=== PATIENT | male | born 1955 | race Caucasian/White ===

== ENCOUNTER 2019-04-30 10:45 | Inpatient (IN) ==
[2019-04-30] MEDS ORDERED: Albuterol 2.5 MG/3 ML NEBULIZER IH ONE (11:00)
[2019-04-30] MEDS ORDERED: CeFAZolin Syr 2,000MG/20 ML 2,000 MG/20 ML SYRINGE IVPB ONE (11:00)
[2019-04-30] MEDS ORDERED: Ringers Solution, Lactated 1,000 ML IVC SCH ×2 (11:00→18:01)
--- NOTE | 2019-04-30 11:21 | History & Physical Report ---
Date of Encounter: 04/30/19 Time of Encounter: 11:21 24 Hour HP Update - Instructions Instructions: If the History and Physical is less than 30 days old and was completed prior to A.M. admission and or procedure and has NOT been updated on calendar day of procedure please complete this update prior to performing procedure. - Update Patient reports changes in Medical Condition: No Changes in examination, assessment, or condition: No Changes in Medication: No Preop tests/diagnostics Reviewed: Yes Surgery Remains Indicated: Yes Consent for Planned Operative Procedure(s) Verified: Yes - Pre-Operative Checklist Preoperative Checklist Indicated: No Prophylactic Antibiotic Ordered: Yes Is VTE Prophylaxis Indicated?: Yes
[2019-04-30] MEDS ORDERED: Ipratropium/Albuterol Neb 3 ML IH PRN (12:02)
[2019-04-30] MEDS ORDERED: Gabapentin 300 MG CAPSULE PO ONE (12:02)
[2019-04-30] MEDS ORDERED: traMADol 50 MG TABLET PO ONE (12:02)
--- NOTE | 2019-04-30 12:09 | Anesthesia Evaluation PreOp ---
Date of Encounter: 04/30/19 Time of Encounter: 12:07 - Past History Planned Operation: LEFT REVERSE TSA Cardiac History: HTN, Hyperlipidemia, Other (DIFFUSE MILD 3V CAD BY [facility] 2016, NORMAL EF) Pulmonary History: Smoker, COPD [employer] History: TIA (~ 5-6 YRS AGO), Other (ANXIETY, DEPRESSION) Other Medical History: Other (ARTHRITIS) Alcohol Use: none Drug use: none Medications and Allergies Aspirin [Ecotrin] 325 mg PO QPM 06/14/16 [History] Atenolol [Tenormin] 50 mg PO HS 06/14/16 [History] Diclofenac Sodium [Voltaren] 75 mg PO BID 06/14/16 [History] Fluticasone Propionate Nasal [Flonase] 2 spr NS DAILY 06/14/16 [History] Loratadine [Claritin] 10 mg PO QAM 06/14/16 [History] Nitroglycerin [Nitrostat] 0.4 mg SL Q5M PRN 06/14/16 [History] Atorvastatin Calcium [Lipitor] 80 mg PO QPM 04/30/19 [History] Azelastine HCl 1 drop BOTH EYES DAILY PRN 04/30/19 [History] Bupropion HCl [Wellbutrin Xl] 300 mg PO QAM 04/30/19 [History] Gabapentin [Neurontin] 100 mg PO TID 04/30/19 [History] HYDROcodone/Acet 7.5/325 mg [[place] 7.5-325 mg] 1 tab PO TID PRN 04/30/19 [History] Lisinopril [Zestril] 10 mg PO QAM 04/30/19 [History] Magnesium Oxide [Magnesium] 400 mg PO BID 04/30/19 [History] Mometasone/Formoterol [Dulera 200 Mcg/5 Mcg Inhaler] 2 puff IH BID 04/30/19 [History] Allergy/AdvReac Type Severity Reaction Status Date / Time No Known Allergies Allergy Unverified 04/30/19 11:19 - Meds/Allergy Pre-op Review Medications Reviewed: Yes Allergies Reviewed: Yes Beta Blockers on Current Med List: Yes If Beta Blockers taken, Date/Time (Last Dose taken): 2300 Anesthesia Results - Labs WNL Anesthesia Exam Vital Signs/O2 Sat/Glucose, Most Recent Temp Pulse Resp BP Pulse Ox 97.8 F 55 16 100/58 96 08/30/19 11:11 04/30/19 11:11 04/30/19 11:11 04/30/19 11:11 04/30/19 11:11 Weight: 104 KG - BMI 35 NPO (# of Hours): 8 - HEENT Mallampati: I Teeth: Normal - Cardiac Rhythm: Regular - Pulmonary Breath Sounds: bilateral Clear Anesthesia Assess/Plan ASA Score: 3 Anesthetic Plan: General, Regional Nerve Block Monitoring Plan: Standard Monitors Recovery Plan: PACU
[2019-04-30] MEDS ORDERED: Ketorolac 30 MG/ML VIAL IVP ONE (12:15)
[2019-04-30] MEDS ORDERED: *HR* Promethazine 25 MG/ML VIAL IVP PRN (12:15)
[2019-04-30] MEDS ORDERED: *HR* HYDROmorphone (PF) 1 MG/ML SYRINGE IVP PRN (12:15)
[2019-04-30] MEDS ORDERED: *HR* OxyCODONE Immed Rel 5 MG TABLET PO PRN ×2 (12:15→18:01)
[2019-04-30] MEDS ORDERED: Ondansetron 4 MG/2 ML VIAL IVP ONE (12:15)
[2019-04-30] MEDS ORDERED: *HR* Labetalol 20 MG/4 ML SYRINGE IVP PRN (12:15)
[2019-04-30] MEDS ORDERED: *HR* FentaNYL (PF) 100 MCG/2 ML VIAL ONE ×2 (13:13→13:28)
[2019-04-30] MEDS ORDERED: *HR* Midazolam HCl 2 MG/2 ML VIAL ONE (13:13)
[2019-04-30] MEDS ORDERED: ROPIVACAINE/PF/NS 0.25% 1 EACH SYRINGE INTRAART ONE (13:15)
[2019-04-30] MEDS ORDERED: Ropivacaine/PF 0.5% 30 ML VIAL ONE (13:15)
[2019-04-30] MEDS ORDERED: Ethanol\\Acetic Acid\\Na Ace\\Ben 1,000 ML IRRIG.SOLN IR ONE (13:21)
[2019-04-30] MEDS ORDERED: Ondansetron 4 MG/2 ML VIAL ONE (13:28)
[2019-04-30] MEDS ORDERED: Lidocaine -MPF 2% 2 ML VIAL ONE (13:28)
[2019-04-30] MEDS ORDERED: *HR* Rocuronium Bromide 50 MG/5 ML VIAL ONE (13:28)
[2019-04-30] MEDS ORDERED: *HR* Succinylcholine 200 MG/10 ML VIAL IVP ONE (13:28)
[2019-04-30] MEDS ORDERED: Dexamethasone 4 MG/ML VIAL ONE (13:28)
--- NOTE | 2019-04-30 13:56 | Anesthesia Procedures ---
Date of Encounter: 04/30/19 Time of Encounter: 13:25 Procedures: Anesthesia - Nerve Block Procedure Date: 04/30/19 Time: 13:25 Surgical Procedure: Left TSR Checklist: Correct Patient Identifier, Correct procedure, History checked Correct side: Left Blood Thinner: No Monitor Applied: EKG, BP, Pulse Oximetry Supplemental Oxygen via Nasal Cannula (L/min): 2 Sedation: Versed (mg): 2 Sedation: Fentanyl (mcg): 100 Indication: Post Op Analgesia (per patrick) Pre-op Neuro Deficits: No Block Type: Supraclavicular, Other (scp, icb) Catheter placed: No Sterile Technique: Yes Ultrasound used: Yes Anatomy identified: Yes Visual spread of Local: Yes Neuro Stimulation: No Blood on Needle Aspiration: No Smooth Injection of Local: Yes Pain with Injection of Local: No Prep: Chlorhexadine Needle: 22 x 50 mm Stimuplex Local: Ropivacaine (30cc 0.5% with 8mg decadron supraclav., 5cc 0.25% scp, 15cc 0.25% icb) Volume (cc): 30, 5, 15 Number of Attempts: 1 Complications: None/effective block Vitals: Vital Signs/O2 Sat/Glucose, Most Recent Temp Pulse Resp BP Pulse Ox 97.8 F 62 16 103/75 95 04/30/19 11:11 04/30/19 13:29 04/30/19 11:11 04/30/19 13:29 04/30/19 13:29 Comments: [facility]
[2019-04-30] MEDS ORDERED: EPHEDrine 50 MG/ML VIAL ONE (14:08)
[2019-04-30] MEDS ORDERED: *HR* PHENYLEPHRINE 1,000 MCG/10 ML SYRINGE IVP ONE (14:14)
[2019-04-30] MEDS ORDERED: *HR* Propofol 200 MG/20 ML VIAL IVP ONE (14:27)
--- NOTE | 2019-04-30 14:36 | Orthopedic Operative Note ---
Date of procedure: 04/30/19 Pre-op diagnosis: Left shoulder cuff tear arthropathy Post-op diagnosis: same Procedure: Procedure: Total Shoulder Replacment Reverse, left Estimated blood loss: 100 cc Hardware: Metal and polyethylene replacement: Arthrex 28, +4, 30 mm post, glenoid baseplate, 4 locking 5.5 screw, 42+4 glenosphere, 9 [place] humeral stem, poly insert 3 Exam Under anesthesia: Full motion no instability Procedural Notes: Irreparable tear rotator cuff supraspinatus and subscapularis Operative procedure: The patient was brought to the operating room and placed on the operating room table. After general anesthesia was administered the operative shoulder was ex amined. Findings were noted. The patient was placed in the modified beachchair position. All pressure points were padded appropriately. And the head was stabilized in the neutral position. The operative extremity was prepped and draped in the sterile surgical fashion. The patient received IV antibiotics prior to skin incision. A standard deltopectoral approach was made to the operative shoulder. Incision was made to the skin and subcutaneous tissue,hemo stasis was obtained with Bovie cautery. Using careful blunt dissection the cephalic vein was identified and mobilized medially. The deltopectoral interval was developed and the clavipectoral fascia was incised. The subscap was irreparable. The humerus was dislocated patient noted to have irreparable tear supraspinatus tendon, and the humeral cut was made along the anatomic neck. Anterior and posterior Bankart retractors were placed to expose the glenoid. The glenoid guide was seated and the centering hole was made. It was reamed with the appropriate reamer. The baseplate was seated and secured with 4 locking 5.5 screw. The baseplate was irrigated and dried and the 42+4 Glenosphere was seated and secured with the Tucker taper. The Tucker taper was tested and found to be secure, glenosphere fixation was secondarily secured with the central screw. The humerus was redislocated and prepared with the diaphyseal reamers, followed by a broaching process up to the appropriate size 9 [place] in the patient's anatomic version. The metaphyseal reamer was then utilized. Trial reduction found the shoulder to be relocatable. Trial components were removed and 9 [place] stem was impacted in place in the patient's anatomic version. Trial reduction found the shoulder to be relocatable and stable with the appropriate 3. Trial component was removed and the real implant was seated and secured the shoulder was reduced. The shoulder had excellent motion and excellent stability and no evidence of dislocation. The deep tissue was irrigated with pulse irrigation. The PA close the shoulder. The deltopectoral interval was closed with a running #1 PDS suture, subcutaneous tissue was irrigated and closed with 0 PDS suture, the skin was closed with Dermabond. The patient was placed in a sterile dressing, abduction brace and extubated. The patient was then transferred to the recovery room in stable condition. Anesthesia: GETJamia Surgeon: Terrence Robertson Was there an service center assistant present: No Estimated blood loss (cc): 100 Condition: stable Disposition: PACU
[2019-04-30] MEDS ORDERED: *HR* Vasopressin 20 UNIT/ML VIAL ONE (15:11)
[2019-04-30 15:29] LABS: Hematocrit 43.5 % (37.5-50.1); Hemoglobin 14.1 g/dL (12.9-16.9)
--- NOTE | 2019-04-30 16:50 | Anesthesia Evaluation Post Op ---
Date of Encounter: 04/30/19 Time of Encounter: 15:50 - Discharge PostOp Status: Transfer Patient to floor (Patient's vital signs have been reviewed. Patient is stable postoperatively and has adequately recovered from anesthesia. Patient is determined to have stable airway patency and respiratory function including respiratory rate and oxygen saturation. Patient has a stable heart rate, blood pressure and adequate hydration. Patients mental status is acceptable. Patients temperature is appropriate. Pain and nausea are adequately controlled)
--- NOTE | 2019-04-30 17:18 | Physician Discharge Referral ---
Home Health/Hosp Referral Info Transfer to: Home Health Attending Provider: Dr. Terrence Robertson - Diagnosis (1) Left shoulder pain Priority: Primary Status: Chronic (2) Rotator cuff tear arthropathy of left shoulder Priority: Primary Status: Chronic (3) Status post total replacement of left shoulder Priority: Primary Status: Acute (4) HTN (hypertension) Priority: Secondary Status: Chronic (5) Tobacco dependence Priority: Secondary Status: Chronic (6) COPD (chronic obstructive pulmonary disease) Priority: Secondary Status: Chronic (7) Chronic pain Priority: Secondary Status: Chronic - Respiratory Orders Smoking Cessation: Smoking cessation has been advised. For more information, call the [place] Tobacco Quit Line at 1-426-QSNZ-NOW. - Diet/Nutrition Diet/Nutrition Orders: Regular - Activity Activity Orders: Up ad dior, Ambulate, Chair - Services Needed Following services are medically necessary services: Nursing, Home Health Aide, Physical Therapy, Occupational Therapy, Med Social Work Home Care Orders: Opsite placed. Keep dressing intact until first follow up appointment. If greater than 50% saturated, notify office, remove dressing and place appropriate dressing back in place. Leave Zipline intact. Opsite dressing is water resistant, not water-proof. OK to shower, but do not get dressing wet. PT/OT. NWB to affected upper extremity. Follow Shoulder Precautions x 6 weeks. Stay in brace during activity and at night. Remove brace during exercises. ICE and elevate extremity frequently throughout the day. - Transfer Medications Prescriptions: Docusate [Colace] 100 mg PO BID 5 Days #10 capsule Ibuprofen [Motrin] 600 mg PO Q6HR PRN 7 Days #28 tab PRN Reason: Pain Home Medications: Aspirin [Ecotrin] 325 mg PO QPM 06/14/16 [History] Atenolol [Tenormin] 50 mg PO HS 06/14/16 [History] Diclofenac Sodium [Voltaren] 75 mg PO BID 06/14/16 [History] Fluticasone Propionate Nasal [Flonase] 2 spr NS DAILY 06/14/16 [History] Loratadine [Claritin] 10 mg PO QAM 06/14/16 [History] Nitroglycerin [Nitrostat] 0.4 mg SL Q5M PRN 06/14/16 [History] Atorvastatin Calcium [Lipitor] 80 mg PO QPM 04/30/19 [History] Azelastine HCl 1 drop BOTH EYES DAILY PRN 04/30/19 [History] Bupropion HCl [Wellbutrin Xl] 300 mg PO QAM 04/30/19 [History] Docusate [Colace] 100 mg PO BID 5 Days #10 capsule 04/30/19 [Rx] Gabapentin [Neurontin] 100 mg PO TID 04/30/19 [History] HYDROcodone/Acet 7.5/325 mg [[place] 7.5-325 mg] 1 tab PO TID PRN 04/30/19 [History] Ibuprofen [Motrin] 600 mg PO Q6HR PRN 7 Days #28 tab 04/30/19 [Rx] Lisinopril [Zestril] 10 mg PO QAM 04/30/19 [History] Magnesium Oxide [Magnesium] 400 mg PO BID 04/30/19 [History] Mometasone/Formoterol [Dulera 200 Mcg/5 Mcg Inhaler] 2 puff IH BID 04/30/19 [History] Allergies/Adverse Reactions: Allergy/AdvReac Type Severity Reaction Status Date / Time No Known Allergies Allergy Unverified 04/30/19 11:19 Certification: Further, I certify that my clinical findings support that this patient is homebound (i.e. absences from home require considerable and taxing effort and are for medical reasons or worship services or infrequently or short duration when for other reasons) because: Homebound Reason: Post-surgery restriction and or conditions limit ability to leave home Attestation: My signature below is to certify that this patient is under my care and that I, or nurse practitioner, or a physician sales office assistant working with me, has a [id number] encounter with this patient.
[2019-04-30] MEDS ORDERED: *HR* Enoxaparin 30 MG/0.3 ML SYRINGE SQ SCH (18:00)
[2019-04-30] MEDS ORDERED: Nitroglycerin 0.4 MG TAB.SUBL SL PRN (18:01)
[2019-04-30] MEDS ORDERED: Ondansetron 4 MG/2 ML VIAL IVP PRN (18:01)
[2019-04-30] MEDS ORDERED: Temazepam 15 MG CAPSULE PO PRN (18:01)
[2019-04-30] MEDS ORDERED: Sennosides 8.6 MG TABLET PO PRN (18:01)
[2019-04-30] MEDS ORDERED: traMADol 50 MG TABLET PO PRN (18:01)
[2019-04-30] MEDS ORDERED: (Azelastine Hcl 1 DROP) OP PRN (18:01)
[2019-04-30] MEDS ORDERED: MOM Conc 10 ML UD.LIQ PO PRN (18:01)
[2019-04-30] MEDS ORDERED: *HR* OxyCODONE/APAP 5/325 TABLET PO PRN (18:01)
--- NOTE | 2019-04-30 18:46 | Discharge Summary ---
<Calderon Arriaza - Last Filed: 04/30/19 18:43> Orders not resulted at time of discharge: Pending orders 04/30/19 14:39 Surgical Pathology [PTH] Routine Date of Encounter: 04/30/19 - Discharge Diagnosis (1) Left shoulder pain Priority: Primary Status: Acute - Hospital Course Hospital course: Mr. Soler is a 64 year old male - Time Spent with Patient Total time spent providing and/or coordinating discharge services: - Discharge Medications Prescriptions: New Docusate [Colace] 100 mg PO BID 5 Days #10 capsule Continued Aspirin [Ecotrin] 325 mg PO QPM Atenolol [Tenormin] 50 mg PO HS Loratadine [Claritin] 10 mg PO QAM Diclofenac Sodium [Voltaren] 75 mg PO BID Nitroglycerin [Nitrostat] 0.4 mg SL Q5M PRN PRN Reason: Chest Pain Fluticasone Propionate Nasal [Flonase] 2 spr NS DAILY Atorvastatin Calcium [Lipitor] 80 mg PO QPM Azelastine HCl 1 drop BOTH EYES DAILY PRN PRN Reason: Allergy Symptoms Bupropion HCl [Wellbutrin Xl] 300 mg PO QAM Gabapentin [Neurontin] 100 mg PO TID HYDROcodone/Acet 7.5/325 mg [[place] 7.5-325 mg] 1 tab PO TID PRN PRN Reason: Pain Lisinopril [Zestril] 10 mg PO QAM Magnesium Oxide [Magnesium] 400 mg PO BID Mometasone/Formoterol [Dulera 200 Mcg/5 Mcg Inhaler] 2 puff IH BID Home Medications: Aspirin [Ecotrin] 325 mg PO QPM 06/14/16 [History] Atenolol [Tenormin] 50 mg PO HS 06/14/16 [History] Diclofenac Sodium [Voltaren] 75 mg PO BID 06/14/16 [History] Fluticasone Propionate Nasal [Flonase] 2 spr NS DAILY 06/14/16 [History] Loratadine [Claritin] 10 mg PO QAM 06/14/16 [History] Nitroglycerin [Nitrostat] 0.4 mg SL Q5M PRN 06/14/16 [History] Atorvastatin Calcium [Lipitor] 80 mg PO QPM 04/30/19 [History] Azelastine HCl 1 drop BOTH EYES DAILY PRN 04/30/19 [History] Bupropion HCl [Wellbutrin Xl] 300 mg PO QAM 04/30/19 [History] Docusate [Colace] 100 mg PO BID 5 Days #10 capsule 04/30/19 [Rx] Gabapentin [Neurontin] 100 mg PO TID 04/30/19 [History] HYDROcodone/Acet 7.5/325 mg [[place] 7.5-325 mg] 1 tab PO TID PRN 04/30/19 [History] Lisinopril [Zestril] 10 mg PO QAM 04/30/19 [History] Magnesium Oxide [Magnesium] 400 mg PO BID 04/30/19 [History] Mometasone/Formoterol [Dulera 200 Mcg/5 Mcg Inhaler] 2 puff IH BID 04/30/19 [History] Allergies/Adverse Reactions: Allergy/AdvReac Type Severity Reaction Status Date / Time No Known Allergies Allergy Unverified 04/30/19 11:19 Date of admission: 04/30/19 16:35 Primary care physician: Noé Montez CNP Consults: 04/30/19 18:01 Consult to Occupational Therapy [CONS] Routine Comment: post shoulder surgery Reason for Consult: post shoulder surgery Does patient have active BEDREST order?: No Is patient medically & hemodynamically stable?: Yes Consult to Physical Therapy [CONS] Routine Comment: post shoulder surgery Reason for Consult: post shoulder surgery Does patient have active BEDREST order?: No Is patient medically & hemodynamically stable?: Yes Consult to Realty Specialist [CONS] Routine Reason for SW Consult: shoulder surgery RT Post Op Consult [CONS] Routine Labs on day of discharge: Labs from last 24 hours 04/30/19 15:20 Hgb 14.1 Hct 43.5 - Impressions ITS Impressions Shoulder X-Ray 04/30/19 01:00 IMPRESSION: No acute complications status post reverse left shoulder arthroplasty. D/ / Emilio Nowak MD / Emilio Nowak MD Interpreting Provider: Emilio Nowak MD - Patient Status Disposition: Home Health Service Condition: Good - Discharge Instructions Follow Up With: Lakesha Gordillo PAC [Physician Charity Fundraiser] - 05/06/19 2:45 pm Terrence Robertson MD [Partnered Physician] - 05/26/19 5:10 pm Additional Instructions: Discharge Instructions: Total Shoulder Please call [facility] ([phone]), your Primary Care Physician, or report to the Emergency Room if you have any of the following symptoms: Nausea, vomiting, fever greater that 101.5, swelling, chest pain, shortness of breath, increased pain/redness/drainage/odor for your incision site, numbness/tingling, or any other concerning symptoms. ACTIVITY: Always keep your arm in the sling. Do not raise your arm away from your body. Do not use your arm to help with getting in or out of bed. No weight bearing permitted. Only perform those exercises given to you by your therapist. Incentive Spirometer 10 times an hour. MEDICATIONS: Upon discharge resume your home medications. Take all the medications as prescribed. Take a stool softener if taking narcotic pain medications. Stool softeners are only effective if you drink enough fluids. Drink 6-8 glass of water or fluids a day, unless this is not allowed for another health problem. Despite using stool softeners, if you haven't had a bowel movement in 3 days, please switch to a gentle laxative. Gentle laxatives are sold over the counter. You should have a bowel movement within 24 hours, if not call the office. You will be discharged from the hospital with a prescription for pain medication. You are encouraged to decrease the use of narcotic pain medication as tolerated. Should you require a refill, please call the office. [facility] prescribes narcotic pain medication for only 4-6 weeks after surgery. If you require pain medication beyond this time period, you may be referred to your Primary Care Physician or to the Pain Clinic for further evaluation. Plan ahead for refills on pain medication as many narcotics either need to be picked up at the office or mailed. It is best to call 48-72 hours in advance of needing a prescription refill so you don't run out of medication. To help control the post-operative pain, you may take NSAIDs (Aleve,Advil, Motrin, Ibuprofen, Naprosyn) or Tylenol as prescribed on the bottle in addition to the pain medication. WOUND CARE: Leave the dressing on for 7-10 days. You may change the dressing if it becomes saturated greater than 50%. Do not get the dressing wet at anytime. Wash your hands with antibacterial soap, rinse and dry prior to any wound care. If you have jenny the visiting nurse or rehab facility can remove the stapes 10-14 days after surgery and place steri-strips across the wound. Leave the steri-strips in place until they fall off on their own. You may let water from the shower run on top of the steri-strips. If you do not have a visiting nurse or rehab facility, you will need to return to the office at 10-14 days for the jenny to be removed. If you have itching or redness around the dressing call the office. FOLLOW-UP: Please follow up with your surgeon in the orthopedic clinic, as scheduled <Lakesha Gordillo - Last Filed: 05/08/19 07:35> Date of Encounter: 04/30/19 Time of Encounter: 12:30 - Discharge Diagnosis (1) Left shoulder pain Priority: Primary Status: Chronic Qualifiers: Chronicity: chronic Qualified Code(s): M25.512 - Pain in left shoulder; G 89.29 - Other chronic pain (2) Rotator cuff tear arthropathy of left shoulder Priority: Primary Status: Chronic (3) Status post total replacement of left shoulder Priority: Primary Status: Acute (4) HTN (hypertension) Priority: Secondary Status: Chronic Qualifiers: Hypertension type: unspecified Qualified Code(s): I10 - Essential (primary) hypertension (5) Tobacco dependence Priority: Secondary Status: Chronic (6) COPD (chronic obstructive pulmonary disease) Priority: Secondary Status: Chronic Qualifiers: COPD type: unspecified COPD Qualified Code(s): J44.9 - Chronic obstructive pulmonary disease, unspecified (7) Chronic pain Priority: Secondary Status: Chronic Qualifiers: Chronic pain type: other chronic pain Qualified Code(s): G89.29 - Other chronic pain - Hospital Course Hospital course: Mr. Soler is a 64 year old male The patient's postoperative course was uneventful. Progressed from intravenous analgesic needs to oral analgesic needs only. Remained neurovascularly intact and mobilized satisfactorily. All radiographic studies were satisfactory. Patient course and disposition was followed by Dr. Robertson. Patient seen by Dr. Robertson as discharging physician on this day. Patient is discharged with plan for rehabilitation and outpatient orthopedic follow up has been arranged. - Time Spent with Patient Total time spent providing and/or coordinating discharge services: Date of admission: 04/30/19 16:35 Primary care physician: Noé Montez CNP Consults: 04/30/19 18:01 Consult to Occupational Therapy [CONS] Routine Comment: post shoulder surgery Reason for Consult: post shoulder surgery Does patient have active BEDREST order?: No Is patient medically & hemodynamically stable?: Yes Consult to Physical Therapy [CONS] Routine Comment: post shoulder surgery Reason for Consult: post shoulder surgery Does patient have active BEDREST order?: No Is patient medically & hemodynamically stable?: Yes Consult to Realty Specialist [CONS] Routine Reason for SW Consult: shoulder surgery RT Post Op Consult [CONS] Routine Discharging clinician: Terrence Robertson Anticipated date of discharge: 05/01/19 - VTE Documentation of Mechanical Device: Venous foot pump, device - Impressions ITS Impressions Shoulder X-Ray 04/30/19 01:00 IMPRESSION: No acute complications status post reverse left shoulder arthroplasty. D/ / Emilio Nowak MD / Emilio Nowak MD Interpreting Provider: Emilio Nowak MD - Patient Status Functional capacity at discharge: independent ambulation Overall status at discharge: patient is progressing back to baseline - Diet and Activity Activity: as per physical therapy Diet: advance to your usual diet
[2019-04-30] MEDS: Aspirin Enteric Coated 325 MG Tablet PO SCH (20:03)
[2019-04-30] MEDS: Budesonide/Formoterol 160/4.5 1 PUFF INH IH SCH (20:28)
[2019-04-30] MEDS ORDERED: Magnesium Oxide 400 MG TABLET PO SCH (21:00)
[2019-04-30] MEDS: Gabapentin 100 MG CAPSULE PO SCH (22:03)
[2019-04-30] MEDS: Nicotine 21 MG PATCH.TD24 TD SCH (22:03)
[2019-05-01] MEDS: *HR* Enoxaparin 30 MG/0.3 ML SYRINGE SQ SCH ×2 (04:48→05:16)
[2019-05-01] MEDS ORDERED: Famotidine 20 MG TABLET PO SCH (04:53)
[2019-05-01] MEDS: Aspirin Enteric Coated 325 MG Tablet PO SCH (05:14)
[2019-05-01 06:56] LABS: Hematocrit 42.9 % (37.5-50.1); Hemoglobin 13.9 g/dL (12.9-16.9)
[2019-05-01 07:18] LABS: BUN/Creatinine Ratio 20 (6-26); Blood Urea Nitrogen 18 mg/dL (8-23); Calcium 8.7 mg/dL (8.6-10.3); Carbon Dioxide 23 mEq/L (23-29); Chloride 103 mEq/L (98-107); Glucose 166 mg/dL (70-105); Osmolality,Calculated 290 (280-300); Potassium 4.4 mEq/L (3.5-5.1); Sodium 137 mEq/L (136-145); eGFR For African Americans > 60 (> 60); eGFR For Non-African Americans > 60 (> 60)
[2019-05-01] MEDS: Budesonide/Formoterol 160/4.5 1 PUFF INH IH SCH (07:48)
[2019-05-01 08:06] VITALS: BP 120/68
[2019-05-01] MEDS ORDERED: Fluticasone Propionate Nasal 50 MCG/SPRAY BOTTLE NS SCH (09:00)
[2019-05-01] MEDS ORDERED: BuPROPion XL (24 HR) 150 MG TABLET PO SCH (09:00)
[2019-05-01] MEDS ORDERED: Loratadine 10 MG TABLET PO SCH (09:00)
[2019-05-01] MEDS: Gabapentin 100 MG CAPSULE PO SCH (10:31)
[2019-05-01] MEDS: Nicotine 21 MG PATCH.TD24 TD SCH (11:28)
== END 2019-05-01 12:29 | disposition home health service (06) | DRG 322 ==
LOC: SAMDAY 10:45 → 3NENU 16:35
PROVIDERS: ADMIT Orthopaedic Surgery; ATTEND Orthopaedic Surgery

== ENCOUNTER 2021-08-25 16:18 | Observation (INO) ==
[2021-08-25] MEDS ORDERED: 0.9 % Sodium Chloride 1,000 ML IVC ONE (16:28)
[2021-08-25 16:59] LABS: Basophils # 0.1 K/mcL (0.0-0.2); Basophils % 0.6 %; Eosinophils # 0.1 K/mcL (0.0-0.6); Eosinophils % 0.6 %; Hematocrit 49.9 % (37.5-50.1); Immature Granulocytes % 0.5 % (0-4); Lymphocytes # 1.3 K/mcL (0.6-4.6); Lymphocytes % 12.2 %; Mean Corpuscular HGB Conc 34.1 g/dL (31.6-35.5); Mean Corpuscular Hemoglobin 31.5 pg (28.0-33.3); Mean Corpuscular Volume 92.4 fL (83.0-100.0); Mean Platelet Volume 9.2 fL (9.4-12.4); Monocytes # 0.8 K/mcL (0.0-1.3); Monocytes % 7.2 %; Neutrophils # 8.6 K/mcL (1.6-8.9); Platelet Count 211 K/mcL (140-400); Red Cell Distribution Width 12.8 % (11.5-14.5); Segmented Neutrophils % 78.9 %; White Blood Count 10.9 K/mcL (4.3-11.1)
[2021-08-25 17:09] LABS: Bacteria,Urine Few per hpf (None-Few); Bilirubin,Urine Negative (Negative); Blood,Urine Trace (Negative); Clarity,Urine Clear (Clear); Color,Urine Light-Yellow (Yellow); Glucose,Urine (UA) Normal (Normal); Ketones,Urine Negative (Negative); Leukocyte Esterase,Urine Negative (Negative); Nitrite,Urine Negative (Negative); Protein,Urine Trace mg/dL (Neg-Trace); RBC,Urine 0-3 per hpf (0-3); Specific Gravity,Urine 1.014 (1.010-1.025); Squamous Epithelial Cell,Urine Few per hpf (None-Few); Urobilinogen,Urine Normal (Normal); WBC,Urine 0-3 per hpf (0-3)
[2021-08-25 17:11] LABS: Alanine Aminotransferase 20 Units/L (7-52); Albumin 4.2 g/dL (3.5-5.7); Albumin/Globulin Ratio 1.5 (1.1-2.2); Alkaline Phosphatase 81 Units/L (34-104); Aspartate Amino Transferase 16 Units/L (13-39); BUN/Creatinine Ratio 12 (6-26); Bilirubin,Direct 0.1 mg/dL (0.0-0.2); Bilirubin,Indirect 0.5 mg/dL (0.0-1.0); Bilirubin,Total 0.6 mg/dL (0.3-1.0); Blood Urea Nitrogen 12 mg/dL (8-23); Calcium 9.5 mg/dL (8.6-10.3); Carbon Dioxide 23 mEq/L (23-29); Chloride 105 mEq/L (98-107); Creatine Kinase 122 Units/L (30-223); Ethanol < 10 mg/dL (Less than 10); Globulin 2.8 g/dL (2.4-3.5); Glucose 109 mg/dL (70-105); Osmolality,Calculated 288 (280-300); Potassium 3.9 mEq/L (3.5-5.1); Sodium 139 mEq/L (136-145); Troponin I < 0.03 ng/mL (< 0.04); eGFR For African Americans > 60 (> 60); eGFR For Non-African Americans > 60 (> 60)
[2021-08-25 17:12] LABS: Amphetamine Screen,Urine Negative ng/mL (Cutoff=1000); Barbiturate Screen,Urine Negative ng/mL (Cutoff=200); Benzodiazepines Screen,Urine Negative ng/mL (Cutoff=200); Cannabinoid Screen,Urine Negative ng/mL (Cutoff = 50); Cocaine Screen,Urine Negative ng/mL (Cutoff= 300); Opiate Screen,Urine Negative ng/mL (Cutoff=300); Phencyclidine Screen,Urine Negative ng/mL (Cutoff=25)
[2021-08-25 17:13] LABS: INR 1.1; Prothrombin Time 12.1 Seconds (9.4-12.1)
[2021-08-25 17:15] LABS: Activated Partial Thrombo Time 34.2 Seconds (26.0-36.0)
[2021-08-25 17:28] LABS: Influenza A PCR Negative (Negative); Influenza B PCR Negative (Negative); Resp. Syncytial Virus PCR Negative (Negative)
[2021-08-25 17:29] LABS: SARS-CoV-2 by PCR (In House) Negative (Negative)
[2021-08-25] MEDS ORDERED: cefTRIAXone 1,000 MG in Water for inj. (sterile) 10 ML IVP ONE (17:52)
[2021-08-25] MEDS ORDERED: Acetaminophen 325 MG TABLET PO PRN (18:22)
[2021-08-25] MEDS ORDERED: Ondansetron 4 MG/2 ML VIAL IVP PRN (18:22)
[2021-08-25] MEDS ORDERED: Naloxone 0.4 MG/ML INJ IVP PRN (18:22)
[2021-08-25] MEDS ORDERED: Isovue-370 500 ML BOTTLE IVP ONE (18:23)
[2021-08-25] MEDS ORDERED: Perflutren Lipid Microsphere 1.3 ML in 0.9 % Sodium Chloride 8.7 ML IVP PRN (18:41)
[2021-08-25] MEDS ORDERED: Melatonin 3 MG TABLET PO PRN (18:42)
[2021-08-25] MEDS: Aspirin 81 MG TAB.CHEW PO SCH (19:59)
[2021-08-25] MEDS: 0.9 % Sodium Chloride 1,000 ML IVC SCH (19:59)
[2021-08-25] MEDS: Nicotine 21 MG PATCH.TD24 TD SCH (19:59)
[2021-08-25] MEDS ORDERED: Ipratropium/Albuterol Neb 3 ML IH PRN (21:33)
[2021-08-26 03:11] LABS: Basophils # 0.1 K/mcL (0.0-0.2); Basophils % 0.6 %; Eosinophils # 0.1 K/mcL (0.0-0.6); Eosinophils % 1.3 %; Hematocrit 44.9 % (37.5-50.1); Hemoglobin 15.6 g/dL (12.9-16.9); Immature Granulocytes % 0.4 % (0-4); Lymphocytes # 2.2 K/mcL (0.6-4.6); Lymphocytes % 27.8 %; Mean Corpuscular HGB Conc 34.7 g/dL (31.6-35.5); Mean Corpuscular Hemoglobin 32.2 pg (28.0-33.3); Mean Corpuscular Volume 92.8 fL (83.0-100.0); Monocytes # 0.8 K/mcL (0.0-1.3); Monocytes % 9.9 %; Neutrophils # 4.7 K/mcL (1.6-8.9); Platelet Count 176 K/mcL (140-400); Red Blood Count 4.84 M/mcL (4.19-5.50); Red Cell Distribution Width 12.8 % (11.5-14.5); White Blood Count 7.8 K/mcL (4.3-11.1)
[2021-08-26 03:23] LABS: Estimated Average Glucose 114 mg/dl; Hemoglobin A1C 5.6 %
[2021-08-26 03:26] LABS: BUN/Creatinine Ratio 12 (6-26); Blood Urea Nitrogen 10 mg/dL (8-23); Calcium 8.7 mg/dL (8.6-10.3); Carbon Dioxide 23 mEq/L (23-29); Chloride 109 mEq/L (98-107); Chol/HDL Ratio 5.4 (0-4.9); Cholesterol 141 mg/dL (< 200); Glucose 97 mg/dL (70-105); HDL Cholesterol 26 mg/dL (40-59); LDL Cholesterol,Calculated 88 mg/dL (< 100); Magnesium 1.8 mg/dL (1.6-2.6); Osmolality,Calculated 287 (280-300); Phosphorous 3.3 mg/dL (2.7-4.5); Potassium 3.5 mEq/L (3.5-5.1); Sodium 139 mEq/L (136-145); Triglycerides 136 mg/dL (< 150); Troponin I < 0.03 ng/mL (< 0.04); eGFR For African Americans > 60 (> 60); eGFR For Non-African Americans > 60 (> 60)
[2021-08-26] MEDS: 0.9 % Sodium Chloride 1,000 ML IVC SCH (05:08)
[2021-08-26] MEDS ORDERED: *HR* Enoxaparin 40 MG/0.4 ML SYRINGE SQ SCH (06:00)
[2021-08-26 07:07] VITALS: PULSE 62
[2021-08-26] MEDS: Nicotine 21 MG PATCH.TD24 TD SCH (07:51)
[2021-08-26] MEDS: Aspirin 81 MG TAB.CHEW PO SCH (07:51)
[2021-08-26] MEDS ORDERED: lisinopriL 10 MG TABLET PO SCH (10:30)
[2021-08-26 11:25] VITALS: BP 112/65; TEMP 98.8; O2SAT 98
== END 2021-08-26 13:14 | disposition home or self-care (01) ==
LOC: EMEROOARM 16:18 → 3BNU 16:18
PROVIDERS: ADMIT Internal Medicine; ATTEND Internal Medicine